=== PATIENT | female | born 1965 | race Caucasian/White ===

== ENCOUNTER 2017-07-04 03:17 | Observation (INO) | payer BC ==
[2017-07-04] MEDS ORDERED: Nitroglycerin 2% Ointment 1 INCH/1 GM Packet ONE (03:38)
[2017-07-04 04:10] LABS: Hematocrit 37.6 % (36.0-47.0); Mean Platelet Volume 7.1 fL (7.4-10.4); Red Blood Cell (RBC) Count 5.09 mill/uL (4.20-5.40); White Blood Cell (WBC) Count 10.3 thou/uL (4.8-10.8)
[2017-07-04 04:25] LABS: #Eosinphils 0.4 thou/uL (0.0-0.7); #Lymphocytes 2.7 thou/uL (1.20-3.40); #Monocytes 0.7 thou/uL (0.11-0.59); #Neutrophils 6.5 thou/uL (1.40-6.50); %Basophils 0.4 % (0.0-1.0); %Eosinophils 3.7 % (0.0-10.0); %Lymphocytes 25.8 % (21.0-51.0); %Monocytes 7.2 % (0.0-10.0); Microcytosis SLIGHT = 6-15 cells (100X) (0-5/hpf)
[2017-07-04 04:29] LABS: ALT (SGPT) 32 U/L (8-55); AST (SGOT) 20 U/L (5-34); Alkaline Phosphatase 101 U/L (40-150); Anion Gap 12 mmol/L (10-20); BUN (Urea Nitrogen) 12 mg/dL (9.8-20.1); Bilirubin, Total 0.3 mg/dL (0.2-1.2); CK (CPK) 52 U/L (29-168); Calc. Creatinine Clearance 0 mL/min (70-130); Calcium 9.2 mg/dL (7.8-10.44); Carbon Dioxide 27 mmol/L (22-29); Chloride 101 mmol/L (98-107); Estimated GFR-MDRD Greater than 90; Globulin 2.6 g/dL (2.4-3.5); Lipase 25 U/L (8-78); Protein, Total 6.9 g/dL (6.0-8.3)
[2017-07-04 04:31] LABS: Troponin I Less than 0.010 ng/mL (< 0.028)
[2017-07-04 07:14] LABS: Troponin I Less than 0.010 ng/mL (< 0.028)
[2017-07-04] MEDS ORDERED: Senokot 8.6 MG TAB PO PRN ×2 (07:52)
[2017-07-04] MEDS ORDERED: Benzonatate 100 MG CAP PO PRN (07:52)
[2017-07-04] MEDS ORDERED: traMADol HCl 50 MG TAB PO PRN (07:52)
[2017-07-04] MEDS ORDERED: Acetaminophen 325 MG TAB PO PRN (07:52)
[2017-07-04] MEDS ORDERED: Diabetic Tussin 200 MG/10 ML UDCUP PO PRN (07:52)
[2017-07-04] MEDS ORDERED: HumaLOG 300 UNITS/3 ML VIAL SC PRN ×2 (07:52)
[2017-07-04] MEDS ORDERED: cloNIDine 0.1 MG TAB PO PRN (07:52)
[2017-07-04] MEDS ORDERED: Lorazepam 1 MG TAB PO PRN (07:52)
[2017-07-04] MEDS ORDERED: hydrALAZINE 20 MG/ML VIAL SLOW IVP PRN (07:52)
[2017-07-04] MEDS ORDERED: Bisacodyl 5 MG TAB PO PRN ×2 (07:52)
[2017-07-04] MEDS ORDERED: Mag-Al 1200 mg/1200 mg/30 ML UDCUP PO PRN (07:52)
[2017-07-04] MEDS ORDERED: Dextrose 50% Abboject 50 ML SYRINGE SLOW IVP PRN (07:52)
[2017-07-04] MEDS ORDERED: Dextrose 5% in Water 1,000 ML IV PRN (07:52)
[2017-07-04] MEDS ORDERED: Ondansetron HCl/PF 4 MG/2 ML Vial IVP PRN ×2 (07:52)
[2017-07-04] MEDS ORDERED: Nitroglycerin 0.4 MG TAB (25 Tab Bottle) PO PRN (07:52)
[2017-07-04] MEDS ORDERED: Loratadine 10 MG TAB PO PRN (07:52)
[2017-07-04] MEDS ORDERED: Calcium Carbonate 500 MG ChewTAB PO PRN (07:52)
[2017-07-04 08:30] VITALS: BMI 38.0
[2017-07-04 08:31] VITALS: BP 106/59; TEMP 98.4
--- NOTE | 2017-07-04 08:51 | CT ---
PRELIMINARY REPORT/[facility]/EMERGENCY AFTER HOURS PROCEDURE: EXAM: CT Angiography Chest With Intravenous Contrast EXAM DATE/TIME: Exam ordered 07/04/2017 4:45 AM CLINICAL HISTORY: 52 years old, female; Pain; Chest pain; Type not specified; Patient HX: Cp, R/O pe TECHNIQUE: Axial computed tomographic angiography images of the chest with intravenous contrast using pulmonary embolism protocol. CONTRAST: 100 mL of ISOVUE administered intravenously. COMPARISON: No relevant prior studies available. FINDINGS: Pulmonary arteries: There is no evidence of peripheral filling defects within the pulmonary arterial circulation to suggest pulmonary embolism. Aorta: No acute findings. No thoracic aortic aneurysm. Lungs: There is subpleural atelectasis of the dependent portions of the lungs. There is a pulmonary parenchymal calcification consistent with remote granulomatous organism exposure. No mass. Pleural space: Normal. No significant effusion. No pneumothorax. Heart: Normal. No cardiomegaly. No significant pericardial effusion. No evidence of RV dysfunction. Bones/joints: No acute fracture. No dislocation. Soft tissues: Normal. Lymph nodes: Normal. No enlarged lymph nodes. Upper abdomen: The visualized intra-abdominal structures are normal. IMPRESSION: There is no CT evidence of acute pulmonary embolism. Thank you for allowing us to participate in the care of your patient. Dictated and Authenticated by: Kavon Guajardo MD 07/04/2017 5:04 AM Central Time ([place] & [place]) FINAL REPORT CTA CHEST: Date: 07/04/17 HISTORY: 52-year-old female with history of chest pain. FINDINGS: Contrast enhanced CTA of chest performed. 2D and 3D reconstructed images performed on an independent 3D workstation. This is the final report. Preliminary exam was performed by [facility]. Images demonstrate partially calcified granuloma in the right middle lobe. No other significant pulmo nary parenchymal lesions seen. No evidence of filling defects seen in the pulmonary arteries to sugge st pulmonary emboli. No evidence of pleural or pericardial effusions seen. IMPRESSION: No evidence of pulmonary emboli. I am in agreement with the preliminary report issued by Connie. POS: [facility]
[2017-07-04] MEDS ORDERED: Spironolactone 25 MG TAB PO SCH (09:00)
[2017-07-04] MEDS ORDERED: FLUoxetine HCl 20 MG CAP PO SCH (09:00)
[2017-07-04] MEDS ORDERED: Enoxaparin Sodium 40 MG/0.4 ML SYRINGE SC SCH (09:00)
--- NOTE | 2017-07-04 09:44 | RAD ---
AP VIEW CHEST: Date: 07/04/17 HISTORY: Chest pain. FINDINGS: Comparison studies not available. AP view of chest demonstrates area of hyperdensity in the right mid lung, possibly representing a gra nuloma. No evidence of acute lung parenchymal lesions or abnormalities seen. The rest of the lung is unremarkable. IMPRESSION: Stable right mid lung granuloma, unchanged since the previous exam from 09/17/14. Otherwise unremarka ble AP view of chest. No evidence of acute intrathoracic abnormality seen. POS: [facility]
[2017-07-04 10:25] LABS: Troponin I Less than 0.010 ng/mL (< 0.028)
--- NOTE | 2017-07-04 11:05 | SS ---
PRIMARY CARE PHYSICIAN: Dr. Phillip Dinh. REASON FOR ADMISSION: Chest pain. HISTORY OF PRESENT ILLNESS: A 52-year-old female with a history of diabetes, hypertension, and obesity, who came to emergency room with complaint of chest pain. Patient describes chest pain on the left side which is radiating to left shoulder, associated with nausea and mild shortness of breath. She describes intensity of pain is about 7/10. She denies any associated vomiting, diaphoresis, palpitations or dizziness. The patient does get on and off chest discomfort which has no relation with food, respiration or activity, but last night around midnight, pain was more severe and that is why she was concerned about and decided to come to emergency room for evaluation. In the emergency room, electrocardiogram was normal. She was hemodynamically stable. Her routine blood tests including cardiac enzymes were negative. Subsequently, this patient was admitted to observation unit to rule out ACS. This patient denies any immobilization. She denies any calf tenderness. She denies any pleurisy. She denies any cough, fever, chills or flu-like symptoms. She denies any constipation, diarrhea, melena or hematochezia. She denies any UTI symptoms. She denies any anxiety. In the emergency room, this patient had CT angio which was negative for pulmonary embolism. Chest x-ray was normal. When I saw this patient in the morning, patient did not have any chest pain. So far, this patient's three sets of cardiac enzymes were negative. Her LDL is 124. This patient's routine labs are normal. We are going to order Cardiolite stress test pharmacological because this patient has left foot fracture which was recently diagnosed and she cannot do on treadmill and once stress test is negative, then we will consider discharging her home later on today. Currently , patient is chest pain free. ALLERGIES: BACTRIM and DOXYCYCLINE. CURRENT HOME MEDICATIONS: Metformin 500 mg p.o. b.i.d., atenolol 25 mg p.o. daily, Aldactone 25 mg p.o. daily. This medication as mentioned above patient will resume upon discharge as well. REVIEW OF SYSTEMS: The following complete review of systems was negative, unless otherwise mentioned in the HPI or below: Constitutional: Weight loss or gain, ability to conduct usual activities. Skin: Rash, itching. Eyes: Double vision, pain. ENT/Mouth: Nose bleeding, neck stiffness, pain, tenderness. Cardiovascular: Palpitations, dyspnea on exertion, orthopnea. Respiratory: Shortness of breath, wheezing, cough, hemoptysis, fever or night sweats. Gastrointestinal: Poor appetite, abdominal pain, heartburn, nausea, vomiting, constipation, or diarrhea. Genitourinary: Urgency, frequency, dysuria, nocturia. Musculoskeletal: Pain, swelling. Neurologic/Psychiatric: Anxiety, depression. Allergy/Immunologic: Skin rash, bleeding tendency. Please see my HPI for pertinent positives and negatives. All other review of systems reviewed and negative except as mentioned in the HPI. PAST MEDICAL HISTORY: Diabetes type 2, hypertension, dyslipidemia, obesity. PAST SURGICAL HISTORY: Hysterectomy, left foot surgery, tonsillectomy. PAST PSYCHIATRIC HISTORY: Anxiety and depression. SOCIAL HISTORY: The patient is and lives at home. She drinks alcohol occasionally. She denies any smoking. She denies any other illicit drug abuse. She is working. FAMILY HISTORY: No strong family history of premature coronary artery disease, stroke or cancer. EMERGENCY ROOM COURSE: Patient is given nitro patch, aspirin 325 mg. PHYSICAL EXAMINATION: VITAL SIGNS: On arrival, blood pressure 156/88, pulse 64, respiratory rate 14, temperature 98.1, saturation 97% on room air, weight 95.2 kilograms. GENERAL: The patient is currently alert, awake, no obvious acute distress. HEAD: Normocephalic, atraumatic. EYES: Pupils round, reactive to light. Extraocular muscles intact. ENT: Oropharynx within normal limits. Moist mucous membranes, no oral lesion, no pharyngeal erythema, no exudate. NECK: Supple, no JVD, no thyromegaly, no carotid bruit. No jugular venous distention. LUNGS: Clear to auscultation without any rhonchi or rales. CARDIAC: S1, S2 regular without any murmur. ABDOMEN: Soft, bowel sounds present, nontender, nondistended. No organomegaly , no mass, no suprapubic tenderness. BACK: Examination unremarkable. No CVA tenderness. EXTREMITIES: Upper extremity passive movements of all joints are normal. Lower extremity, no edema and calf tenderness. NEUROLOGIC: Nonfocal examination. The patient moves all 4 limbs. Plantar bilateral flexor. SIGNIFICANT LABORATORY DATA AND IMAGING DATA: 1. CBC: WBC 10.3, hemoglobin 12.0, and platelets 359. 2. BMP: Sodium 136, potassium 3.7, chloride 101, carbon dioxide 27, anion gap 12, BUN 12, creatinine 0.67, glucose 122, and calcium 9.2. 3. LFT: AST 20, ALT 32, alkaline phosphatase 101, albumin 4.3, lipase 25. Cardiac enzymes negative x3, CK 52, triglycerides 144, cholesterol 197, LDL 124 , and HDL 44. 4. CT angio negative for PE. 5. Chest x-ray negative for any acute process. 6. EKG based on my review reveals normal sinus rhythm within normal limits. ASSESSMENT AND PLAN/IMPRESSION: 1. Acute and recurrent chest pain. The patient's description of chest pain is atypical. She does report family history of coronary artery disease, but not premature coronary artery disease. She has underlying risk factors for coronary artery disease including diabetes and hypertension. This patient's initial EKG is normal and cardiac enzymes already negative x3. We will do pharmacological stress test and if that test is negative, then we will consider discharging her home. Most likely, patient's pain could be related with musculoskeletal as well. 2. Diabetes type 2. The patient will resume metformin 500 mg p.o. b.i.d. Diabetic diet will be given. 3. Hypertension. We will continue atenolol 25 mg p.o. at bedtime and Aldactone 25 mg p.o. daily. 4. Anxiety and depression. Patient will resume Prozac 20 mg p.o. daily. 5. Morbid obesity with body mass index 38. Dietary education given. Weight loss education given. Healthy lifestyle measures discussed with the patient. 6. Deep venous thrombosis prophylaxis not needed because we are expecting discharge in 24 hours. 7. Gastrointestinal prophylaxis, Pepcid 20 mg p.o. b.i.d. CODE STATUS: Patient is FULL CODE. Patient's is surrogate decision maker. Disposition plan based on clinical stress test result. DATE OF ADMISSION: 07/04/2017 at 5:00 a.m. DATE OF DISCHARGE: 07/04/2017 DISCHARGE DISPOSITION: Home. PRIMARY DISCHARGE DIAGNOSIS: Chest pain, ruled out acute coronary syndrome. SECONDARY DISCHARGE DIAGNOSES: Obesity with body mass index 38, hypertension, diabetes type 2, anxiety and depression. PRIMARY PROCEDURES/OPERATIONS: None. RADIOLOGICAL INVESTIGATION: Chest x-ray normal. CT angio, no PE. Stress test result is NEGATIVE. SIGNIFICANT LABORATORY DATA: CBC normal. BMP normal. LFT normal. Cardiac enzymes negative. LDL 124. DISCHARGE MEDICATIONS: The patient will resume her previous home medications. Please see above patient's home medication. CONTRAINDICATIONS: None. CODE STATUS: FULL CODE. INPATIENT CONSULTANTS: None. ALLERGIES: DOXYCYCLINE and BACTRIM. DISCHARGE PLAN: Post hospital, patient will follow up with primary care physician in 1 week. HOSPITAL COURSE: Please see my HPI for further details. At this point, we are waiting for stress test and if stress is negative, then she will be discharged home later on today. STRESS TEST IS NEGATIVE AND RESULT DISCUSSED WITH PATIENT The patient was admitted and discharged on the same day. NIMISHA
[2017-07-04] MEDS ORDERED: ISOVUE-370 76%-LOCM 1 ML ONE (13:46)
--- NOTE | 2017-07-04 14:11 | NM ---
MYOCARDIAL PERFUSION AND QUANTITATED GATED SPECT STUDY: HISTORY: 52-year-old female with history of chest pain. TECHNIQUE/FINDINGS: Dose: 29.4 mCi of technetium-99m Cardiolite for the stress and 9.7 mCi for the resting portion of th e exam. The patient was stressed using 0.4 mg of Lexiscan given IV. ' Multiplanar and quantitated gated SPECT images obtained. Images demonstrate no evidence of perfusion abnormalities on the stress images. No evidence of reperf usion areas seen. No evidence of myocardial ischemia or scar seen. Ejection fraction measures 74%. IMPRESSION: Normal myocardial perfusion and quantitated gated SPECT study. POS: [facility]
[2017-07-04] MEDS ORDERED: Regadenoson 0.4 MG/5 ML SYRINGE ONE (16:19)
[2017-07-04] MEDS ORDERED: metFORMIN 500 MG TAB PO SCH (17:00)
[2017-07-05] MEDS ORDERED: Aspirin 325 MG TAB PO SCH (09:00)
--- NOTE | 2017-07-10 15:26 | EKG ---
Test Reason : Blood Pressure : / mmHG Vent. Rate : 067 BPM Atrial Rate : 067 BPM P-R Int : 128 ms QRS Dur : 084 ms QT Int : 418 ms P-R-T Axes : 003 002 017 degrees QTc Int : 441 ms Normal sinus rhythm Normal ECG Confirmed by VICKI JACKSON, HUSSEIN Finley ([id number]), technical editor BAR MCCORMACK ([id number]) on 07/10/2017 3:26:11 PM Referred By: Confirmed By:HUSSEIN COHEN MD
== END 2017-07-04 14:58 | disposition home or self-care (01) ==
LOC: ERS 03:17 → 2SW 05:14
PROVIDERS: ADMIT Internal Medicine Infectious Disease; ATTEND Internal Medicine Infectious Disease
DX: R07.89 Other chest pain (principal); E11.9 Type 2 diabetes mellitus without complications; E78.5 Hyperlipidemia, unspecified; I10 Essential (primary) hypertension; F41.9 Anxiety disorder, unspecified; F32.9 Major depressive disorder, single episode, unspecified; E66.01 Morbid (severe) obesity due to excess calories; Z68.38 Body mass index [BMI] 38.0-38.9, adult; Z88.1 Allergy status to other antibiotic agents; Z79.84 Long term (current) use of oral hypoglycemic drugs; Z79.899 Other long term (current) drug therapy; Z90.710 Acquired absence of both cervix and uterus
CPT/HCPCS: 36415; 71010; 71275; 78452; 80053; 80061; 82550; 82553; 83690; 84484; 85025; 93005; 93017; 94760; A9500; G0378; J1650; J2785

== ENCOUNTER 2018-05-23 22:22 | Emergency (ER) | payer BC ==
--- NOTE | 2018-05-23 23:07 | RAD ---
CHEST TWO VIEWS: 05/23/2018 COMPARISON: 07/04/2017 FINDINGS: Two views of the chest demonstrate a calcified granuloma at the lateral aspect of the right middle lo be. This is unchanged since the previous comparison exam. Mild cardiomegaly and pulmonary vascular congestion is seen. No evidence of effusions, pneumonia, or pneumothorax is seen. IMPRESSION: Calcified right lung granuloma. No other acute intrathoracic abnormalities seen. POS: [facility]
[2018-05-23 23:15] LABS: Hemoglobin 12.6 g/dL (12.0-16.0); Mean Corpuscular HGB CONC 31.5 g/dL (32.0-36.0); Mean Corpuscular Hemoglobin 22.5 pg (27.0-31.0); Mean Corpuscular Volume 71.6 fL (78.0-98.0); Mean Platelet Volume 7.4 fL (7.4-10.4); Platelet Count 370 thou/uL (130-400); RBC Distribution Width 13.7 % (11.5-14.5); Red Blood Cell (RBC) Count 5.58 mill/uL (4.20-5.40); White Blood Cell (WBC) Count 11.3 thou/uL (4.8-10.8)
[2018-05-23 23:17] LABS: #Basophils 0.1 thou/uL (0.0-0.2); #Eosinphils 0.3 thou/uL (0.0-0.7); #Lymphocytes 2.5 thou/uL (1.20-3.40); #Monocytes 0.8 thou/uL (0.11-0.59); #Neutrophils 7.6 thou/uL (1.40-6.50); %Basophils 0.5 % (0.0-1.0); %Lymphocytes 22.4 % (21.0-51.0); %Monocytes 6.9 % (0.0-10.0); %Neutrophils 67.2 % (42.0-75.0); Anisocytosis SLIGHT = 6-15 cells (100X) (0-5/hpf); Elliptocytes SLIGHT = 2-5 cells (100X) (0-1/hpf); MDiff Complete? YES
[2018-05-23 23:20] LABS: ALT (SGPT) 33 U/L (8-55); AST (SGOT) 20 U/L (5-34); Albumin 4.4 g/dL (3.5-5.0); Alkaline Phosphatase 109 U/L (40-150); Anion Gap 13 mmol/L (10-20); BUN (Urea Nitrogen) 15 mg/dL (9.8-20.1); Bilirubin, Total 0.4 mg/dL (0.2-1.2); Calc. Creatinine Clearance 0 mL/min (70-130); Calcium 9.3 mg/dL (7.8-10.44); Carbon Dioxide 24 mmol/L (22-29); Chloride 102 mmol/L (98-107); Estimated GFR-MDRD 83; Globulin 2.8 g/dL (2.4-3.5); Glucose 154 mg/dL (70-105); Lipase 28 U/L (8-78); Potassium 3.6 mmol/L (3.5-5.1); Protein, Total 7.2 g/dL (6.0-8.3); Sodium 135 mmol/L (136-145)
[2018-05-23 23:22] LABS: CKMB 0.9 ng/mL (0-6.6); Troponin I Less than 0.010 ng/mL (< 0.028)
[2018-05-23 23:53] LABS: Bilirubin Negative (Negative); Blood, Urine Negative (Negative); Clarity CLEAR (Clear); Glucose, Urine (Dipstick) Negative (Negative); Leukocyte Negative (Negative); Nitrite Negative (Negative); Protein, Urine (Dipstick) Negative (Neg-Trace); Specific Gravity, Urine 1.017 (1.002-1.036); Urobilinogen 0.2 mg/dL (0.2-1.0)
[2018-05-24 00:11] LABS: Pregnancy Test - Urine (BHCG) Negative (Negative); Pregu Control Background? CLEAR/WHITE (CLR/WHITE); Pregu Control Bar Appear? YES (CONTROL BAR); Specific Gravity 1.017 (1.002-1.036)
--- NOTE | 2018-05-27 16:03 | EKG ---
Test Reason : CHEST PAIN Blood Pressure : / mmHG Vent. Rate : 075 BPM Atrial Rate : 075 BPM P-R Int : 142 ms QRS Dur : 080 ms QT Int : 398 ms P-R-T Axes : -01 -05 019 degrees QTc Int : 444 ms Normal sinus rhythm Normal ECG No changes from 04-JUL-2017 Confirmed by SALVADOR SANTANA DO ([id number]), make up editor BAR MCCORMACK ([id number]) on 05/27/2018 4:03:33 PM Referred By: Confirmed By:SALVADOR SANTANA DO
== END 2018-05-24 00:05 | disposition home or self-care (01) ==
LOC: ERS 22:22
DX: R07.89 Other chest pain (principal); E11.9 Type 2 diabetes mellitus without complications; E78.5 Hyperlipidemia, unspecified; I10 Essential (primary) hypertension; F41.9 Anxiety disorder, unspecified; Z79.84 Long term (current) use of oral hypoglycemic drugs; Z79.899 Other long term (current) drug therapy
CPT/HCPCS: 71046; 80053; 81003; 81025; 82553; 83690; 83880; 84484; 85025; 93005

== ENCOUNTER 2019-02-08 09:41 | Outpatient (CLI) | payer BC ==
--- NOTE | 2019-02-14 16:40 | MMO ---
Bilateral MAMMO Bilat Screen [facility]. CLINICAL HISTORY: Patient is 54 years old and is seen for screening. VIEWS: The views performed were: bilateral craniocaudal with tomosynthesis and bilateral mediolateral oblique with tomosynthesis. FILMS COMPARED: The present examination has been compared to prior imaging studies performed at MAMMOGRAM FINDINGS: There are scattered fibroglandular densities. There are no suspicious masses, suspicious calcifications, or new areas of architectural distortion. IMPRESSION: THERE IS NO MAMMOGRAPHIC EVIDENCE OF MALIGNANCY. A ROUTINE FOLLOW-UP MAMMOGRAM IN 1 YEAR IS RECOMMENDED. THE RESULTS OF THIS EXAM WERE SENT TO THE PATIENT. ACR BI-RADS Category 1 - Negative MAMMOGRAPHY NOTE: 1. A negative mammogram report should not delay a biopsy if a dominant of clinically suspicious mass is present. 2. Approximately 10% to 15% of breast cancers are not detected by mammography. 3. Adenosis and dense breasts may obscure an underlying neoplasm. Reported by: COLTEN THOMPSON MD Electonically Signed: [id number]
== END 2019-02-08 09:42 | disposition home or self-care (01) ==
LOC: BICMAMMO 09:41
PROVIDERS: ATTEND Internal Medicine
DX: Z12.31 Encounter for screening mammogram for malignant neoplasm of breast (principal)
CPT/HCPCS: 77063; 77067

== ENCOUNTER 2019-05-29 06:53 | Outpatient (CLI) | payer BC ==
[2019-05-29 17:53] LABS: #Eosinphils 0.2 thou/uL (0.0-0.7); #Lymphocytes 2.8 thou/uL (1.20-3.40); #Monocytes 0.8 thou/uL (0.11-0.59); #Neutrophils 6.1 thou/uL (1.40-6.50); %Basophils 0.4 % (0.0-1.0); %Eosinophils 2.3 % (0.0-10.0); %Lymphocytes 27.9 % (21.0-51.0); %Neutrophils 61.4 % (42.0-75.0); Hemoglobin 12.9 g/dL (12.0-16.0); Mean Corpuscular HGB CONC 32.8 g/dL (32.0-36.0); Mean Corpuscular Hemoglobin 23.1 pg (27.0-31.0); Mean Corpuscular Volume 70.6 fL (78.0-98.0); Mean Platelet Volume 7.4 fL (7.4-10.4); Platelet Count 365 thou/uL (130-400); RBC Distribution Width 13.4 % (11.5-14.5); White Blood Cell (WBC) Count 9.9 thou/uL (4.8-10.8)
[2019-05-29 18:09] LABS: Hypochromia SLIGHT = 6-15 cells (100X) (0-5/hpf); MDiff Complete? YES; Microcytosis SLIGHT = 6-15 cells (100X) (0-5/hpf); Ovalocytes SLIGHT = 2-5 cells (100X) (0-1/hpf); Platelet Morphology Comment Appears Adequate
[2019-05-29 18:14] LABS: Anion Gap 11 mmol/L (10-20); BUN (Urea Nitrogen) 10 mg/dL (9.8-20.1); Calc. Creatinine Clearance 0 mL/min (70-130); Calcium 9.6 mg/dL (7.8-10.44); Carbon Dioxide 29 mmol/L (22-29); Chloride 103 mmol/L (98-107); Estimated GFR-MDRD 88; Glucose 99 mg/dL (70-105); Potassium 4.5 mmol/L (3.5-5.1); Sodium 138 mmol/L (136-145)
== END 2019-05-29 06:54 | disposition home or self-care (01) ==
LOC: LABBT 06:53
PROVIDERS: ATTEND Surgery
DX: Z01.812 Encounter for preprocedural laboratory examination (principal); K80.20 Calculus of gallbladder without cholecystitis without obstruction
CPT/HCPCS: 80048; 85025; 93005; 93010

== ENCOUNTER 2019-06-02 10:04 | Day surgery (SDC) | payer BC ==
[2019-05-29 17:33] VITALS: BMI 37.5
[2019-06-02] MEDS ORDERED: Ketorolac Tromethamine 30 MG/ML VIAL ONE ×2 (10:19→10:48)
[2019-06-02] MEDS ORDERED: Lidocaine 1% PF 5 ML VIAL ONE (10:19)
[2019-06-02] MEDS ORDERED: Rocuronium Bromide 10 MG/ML (10ML VIAL) ONE (10:19)
[2019-06-02] MEDS ORDERED: PROPOFOL 200 MG/20 ML VIAL ONE (10:19)
[2019-06-02] MEDS ORDERED: Ondansetron PF 4 MG/2 ML Vial ONE (10:19)
[2019-06-02] MEDS ORDERED: Lidocaine 1% w/Epinephrine 1:100K 20 ML VIAL ONE (10:47)
[2019-06-02] MEDS ORDERED: Bupivacaine 0.25% HCL 30 ML VIAL ONE (10:47)
[2019-06-02] MEDS ORDERED: Fentanyl 100 MCG/2 ML VIAL ONE ×4 (11:49→15:10)
[2019-06-02 12:48] LABS: ALT (SGPT) 22 U/L (8-55); AST (SGOT) 15 U/L (5-34); Albumin 4.1 g/dL (3.5-5.0); Alkaline Phosphatase 100 U/L (40-110); Anion Gap 9 mmol/L (10-20); BUN (Urea Nitrogen) 12 mg/dL (9.8-20.1); Bilirubin, Total 0.6 mg/dL (0.2-1.2); Calc. Creatinine Clearance 137 mL/min (70-130); Calcium 9.1 mg/dL (7.8-10.44); Carbon Dioxide 29 mmol/L (22-29); Chloride 105 mmol/L (98-107); Estimated GFR-MDRD 90; Globulin 2.1 g/dL (2.4-3.5); Glucose 99 mg/dL (70-105); Potassium 4.4 mmol/L (3.5-5.1); Protein, Total 6.2 g/dL (6.0-8.3); Sodium 139 mmol/L (136-145)
[2019-06-02] MEDS ORDERED: SUGAMMADEX SODIUM 200 MG/2 ML VIAL ONE (13:38)
--- NOTE | 2019-06-02 16:14 | PDOC.OP ---
Operative Note - Operative Note Operative Note: DATE OF PROCEDURE: 06/02/2019 PROCEDURES: Laparoscopic cholecystectomy. SURGEON: Mary Carlson M.D. PREOPERATIVE DIAGNOSIS: Cholelithiasis, cholecystitis POSTOPERATIVE DIAGNOSIS: Cholelithiasis, cholecystitis FINDINGS: Chronically distended gallbladder with extensive omental adhesions, and large stone in neck. HISTORY: Patient with symptoms of biliary colic. Laparoscopic cholecystectomy was recommended for symptomatic relief. Preoperative LFTs were normal and bile duct was normal caliber on preoperative imaging. PROCEDURE: After informed consent was obtained and appropriate preoperative antibiotics were administered, the patient was taken to the operating room and placed in the supine position and general endotracheal anesthesia was administered. The stomach was decompressed with an OG tube and the abdomen was prepped and draped in standard sterile fashion. Local anesthesia was infused to the skin and subcutaneous tissues at the umbilical level. A transverse skin incision was made. The fascia was elevated and a Veress needle was placed into the abdominal cavity without difficulty. Opening pressure was less than 5 and carbon dioxide gas easily insufflated to an intra-abdominal pressure of 15, which the patient tolerated well. The Veress needle was withdrawn and a Compton port advanced under direct vision. The abdominal cavity was carefully examined. There was no evidence of Veress needle or of trocar injury. Local anesthesia was infused to the skin and subcutaneous tissues at the epigastric, right upper quadrant, and right lateral abdominal sites and trocars were placed under direct vision of the laparoscope. The fundus of the gallbladder was grasped and retracted superiorly. Extensive omental adhesions were taken down through the avascular plane identifying and exposing the infundibulum. The infundibulum was grasped and retracted laterally. The serosa was stripped inferiorly at the level of the neck of the gallbladder exposing the cystic duct and artery which were traced clearly to their insertion in the gallbladder. Critical view of safety was obtained and the cystic duct and artery were clipped and divided between clips. The gallbladder was then dissected free of the gallbladder bed using hook electrocautery. Prior to complete removal of the gallbladder from the gallbladder bed, the area of the cystic duct and artery stumps was examined. The clips were in good position completely across these structures and there was no bleeding and no leakage of bile. The gallbladder was then placed into an EndoCatch bag and drawn out through the epigastric incision. The epigastric trocar was replaced and the operative site easily irrigated to clear. There was no significant bleeding or spillage of bile. The epigastric trocar was removed and the fascia closed under direct laparoscopic vision with a 0 Vicryl suture on a GraNee needle in a figure-of- eight manner with excellent technical result. The right upper quadrant and right lateral abdominal trocars were removed and hemostasis verified. Carbon dioxide gas was allowed to desufflate through the umbilical trocar which was then removed. The skin incisions were closed with 4-0 subcuticular Monocryl sutures and Dermabond dressings were placed. The patient was extubated and taken to the recovery room in good condition. There were no complications. ESTIMATED BLOOD LOSS: Minimal. SPECIMEN : Gallbladder and contents.
== END 2019-06-02 17:05 | disposition home or self-care (01) ==
LOC: SDC 10:04
PROVIDERS: ATTEND Surgery
PROC: 0FT44ZZ Resection of Gallbladder, Percutaneous Endoscopic Approach (ICD-10-PCS; principal; 2019-06-02)
DX: K80.10 Calculus of gallbladder with chronic cholecystitis without obstruction (principal); K66.0 Peritoneal adhesions (postprocedural) (postinfection); I10 Essential (primary) hypertension; E11.9 Type 2 diabetes mellitus without complications; Z79.84 Long term (current) use of oral hypoglycemic drugs; Z79.899 Other long term (current) drug therapy; Z88.1 Allergy status to other antibiotic agents; Z88.2 Allergy status to sulfonamides
CPT/HCPCS: 80053; 88304; J0131; J0690; J1885; J2001; J2405; J2704; J3010; S0020

== ENCOUNTER 2020-02-12 10:18 | Outpatient (CLI) | payer BC ==
--- NOTE | 2020-02-12 11:48 | MMO ---
Bilateral MAMMO Bilat Screen [facility]. CLINICAL HISTORY: Patient is 55 years old and is seen for screening. The patient has no family history of breast cancer. The patient has no personal history of cancer. VIEWS: The views performed were: bilateral craniocaudal with tomosynthesis and bilateral mediolateral oblique with tomosynthesis. FILMS COMPARED: The present examination has been compared to prior imaging studies performed at and at [facility] on 02/08/2019. This study has been interpreted with the assistance of computer-aided detection. MAMMOGRAM FINDINGS: There are scattered fibroglandular densities. Finding 1: There are stable benign appearing densities seen in both breasts. Finding 2: There is a stable intramammary lymph node seen in the left breast. There are no suspicious masses, suspicious calcifications, or new areas of architectural distortion. IMPRESSION: THERE IS NO MAMMOGRAPHIC EVIDENCE OF MALIGNANCY. A ROUTINE FOLLOW-UP MAMMOGRAM IN 1 YEAR IS RECOMMENDED. THE RESULTS OF THIS EXAM WERE SENT TO THE PATIENT. ACR BI-RADS Category 2 - Benign finding MAMMOGRAPHY NOTE: 1. A negative mammogram report should not delay a biopsy if a dominant of clinically suspicious mass is present. 2. Approximately 10% to 15% of breast cancers are not detected by mammography. 3. Adenosis and dense breasts may obscure an underlying neoplasm. Reported by: ELLEN ROSARIO MD Electonically Signed: [id number]
== END 2020-02-12 10:19 | disposition home or self-care (01) ==
LOC: BICMAMMO 10:18
PROVIDERS: ATTEND Internal Medicine
DX: Z12.31 Encounter for screening mammogram for malignant neoplasm of breast (principal)
CPT/HCPCS: 77063; 77067

== ENCOUNTER 2021-05-21 07:30 | Outpatient (CLI) | payer BC ==
[2021-05-21] MEDS ORDERED: Iopamidol-370 76% 500 ML 1 ML ONE (09:57)
== END 2021-05-21 07:31 | disposition home or self-care (01) ==
LOC: BICCT 07:30
PROVIDERS: ATTEND Urology
DX: R31.0 Gross hematuria (principal); K57.30 Diverticulosis of large intestine without perforation or abscess without bleeding; Z90.49 Acquired absence of other specified parts of digestive tract; Z90.710 Acquired absence of both cervix and uterus; N32.89 Other specified disorders of bladder
CPT/HCPCS: 74178

== ENCOUNTER 2022-02-25 15:21 | Outpatient (CLI) | payer BC | END 2022-02-25 15:22 | disposition home or self-care (01) | LOC: BICMAMMO 15:21 | PROVIDERS: ATTEND Internal Medicine | DX: Z12.31 Encounter for screening mammogram for malignant neoplasm of breast (principal) | CPT/HCPCS: 77063; 77067 ==

== ENCOUNTER 2023-03-11 09:52 | Outpatient (CLI) | payer BC | END 2023-03-11 09:53 | disposition home or self-care (01) | LOC: BICMAMMO 09:52 | PROVIDERS: ATTEND Internal Medicine | DX: Z12.31 Encounter for screening mammogram for malignant neoplasm of breast (principal) | CPT/HCPCS: 77063; 77067 ==

== ENCOUNTER 2023-05-27 14:08 | Emergency (ER) | payer BC ==
[2023-05-27 14:31] LABS: #Eosinphils 0.2 thou/uL (0.0-0.7); #Monocytes 0.7 thou/uL (0.11-0.59); #Neutrophils 5.5 thou/uL (1.40-6.50); %Basophils 0.4 % (0.0-1.0); %Eosinophils 2.5 % (0.0-10.0); %Lymphocytes 22.2 % (21.0-51.0); %Monocytes 8.6 % (0.0-10.0); %Neutrophils 65.9 % (42.0-75.0); Hematocrit 39.5 % (36.0-47.0); Hemoglobin 12.4 g/dL (12.0-16.0); Mean Corpuscular HGB CONC 31.4 g/dL (32.0-36.0); Mean Corpuscular Hemoglobin 22.5 pg (27.0-31.0); Mean Corpuscular Volume 71.8 fl (78.0-98.0); Platelet Count 344 10x3/uL (130-400); RBC Distribution Width 15.4 % (11.5-14.5); White Blood Cell (WBC) Count 8.4 10x3/uL (4.8-10.8)
[2023-05-27 14:55] LABS: ALT (SGPT) 18 U/L (8-55); AST (SGOT) 14 U/L (5-34); Albumin 4.7 g/dL (3.5-5.0); Alkaline Phosphatase 95 U/L (40-110); Anion Gap 13 mmol/L (10-20); BUN (Urea Nitrogen) 10 mg/dL (9.8-20.1); Bilirubin, Total 0.7 mg/dL (0.2-1.2); Calc. Creatinine Clearance 0 mL/min (70-130); Calcium 9.3 mg/dL (7.8-10.44); Carbon Dioxide 26 mmol/L (22-29); Chloride 101 mmol/L (98-107); Estimated GFR 96; Globulin 2.3 g/dL (2.4-3.5); Glucose 99 mg/dL (70-105); Lipase 24 U/L (8-78); Sodium 136 mmol/L (136-145)
[2023-05-27 14:56] LABS: Anisocytosis SLIGHT = 6-15 cells HPF (0-5); CellaVision Operator ID LAB.MJL; Hypochromia SLIGHT = 6-15 cells HPF (0-5); Microcytosis SLIGHT = 6-15 cells HPF (0-5); Ovalocytes SLIGHT = 2-5 cells HPF (0-1); Platelet Adequacy Comment Platelets Normal; Polychromasia SLIGHT = 2-3 cells HPF (0-2)
[2023-05-27 14:59] LABS: Troponin I Less than 0.010 ng/mL (< 0.028)
== END 2023-05-27 18:30 | disposition home or self-care (01) ==
LOC: ERS 14:08
DX: R07.89 Other chest pain (principal); I10 Essential (primary) hypertension; E11.9 Type 2 diabetes mellitus without complications; E78.00 Pure hypercholesterolemia, unspecified; Z79.82 Long term (current) use of aspirin; Z79.899 Other long term (current) drug therapy; Z79.4 Long term (current) use of insulin
CPT/HCPCS: 36415; 71045; 80053; 83690; 84484; 85025; 93005